=== PATIENT | female | born 1960 | race Caucasian/White ===

== ENCOUNTER 2024-05-27 22:17 | Emergency (ER) | payer MEDICAID ==
[~2024-05-27] VITALS: Ht 165.1 cm; Wt 77.0 kg
[2024-05-27 22:20] VITALS: O2SAT 98
[2024-05-27 23:11] LABS: CHLORIDE 108 mEq/L (98-107); POTASSIUM 4.3 mEq/L (3.5-5.1); SODIUM 143 mEq/L (136-145)
[2024-05-27 23:12] LABS: CALCIUM 9.8 mg/dL (8.7-10.4); CARBON DIOXIDE 30 mEq/L (21-32)
[2024-05-27 23:17] LABS: CREATININE 0.9 mg/dL (0.6-1.0); GLUCOSE 129 mg/dL (70-105); UREA NITROGEN BLOOD 13 mg/dL (9-23)
[2024-05-27 23:18] LABS: TROPONIN I HIGH SENSITIVITY < 4 ng/L (3.0-34)
[2024-05-27 23:19] LABS: ALANINE AMINOTRANSFERASE 21 IU/L (10-49); ALBUMIN 4.5 g/dL (3.2-4.8); ASPARTATE AMINOTRANSFERASE 27 IU/L (<34); BILIRUBIN DIRECT 0.2 mg/dL (<=3.0); BILIRUBIN TOTAL 0.9 mg/dL (0.1-1.0); PROTEIN TOTAL 7.8 g/dL (6.0-8.3)
[2024-05-27 23:23] LABS: BASOPHILS % 0.1 % (0.0-2.0); EOSINOPHILS % 2.7 % (0.0-5.0); HEMATOCRIT. 42.3 % (36.0-48.0); HEMOGLOBIN. 14.3 g/dL (12.0-16.0); LYMPHOCYTES % 10.1 % (20.0-50.0); MEAN CORPUSCULAR HEMOGLOBIN 32.6 pg (28.0-32.0); MEAN CORPUSCULAR HGB CONC 33.8 g/dL (31.0-37.0); MEAN CORPUSCULAR VOLUME 96.7 fL (81.0-99.0); MEAN PLATELET VOLUME 7.4 fl (7.4-10.4); MONOCYTES % 6.5 % (2.0-8.0); NEUTROPHILS % 80.6 % (40.0-76.0); PLATELET 198 x1000/uL (130-400); RED BLOOD CELL COUNT 4.38 mill/uL (4.2-5.4); RED CELL DISTRIBUTION WIDTH 13.4 % (11.6-14.6); WHITE BLOOD COUNT 15.3 x1000/uL (4.5-11.0)
[2024-05-27] MEDS ORDERED: HYDROCODONE/ACETAMINOPHEN 5/325MG TABLET PO ONE (23:30)
[2024-05-27 23:41] LABS: CLARITY URINE CLOUDY (CLEAR); COLOR URINE YELLOW (YELLOW); GLUCOSE URINE NEGATIVE (NEGATIVE); KETONES URINE NEGATIVE (NEGATIVE); LEUKOCYTE ESTERASE URINE 2+ (NEGATIVE); NITRITE URINE NEGATIVE (NEGATIVE); OCCULT BLOOD URINE NEGATIVE (NEGATIVE); PROTEIN URINE TRACE (NEGATIVE); SPECIFIC GRAVITY URINE 1.025 (1.005-1.030); UROBILINOGEN URINE 0.2 E.U./dL (0.2-1.0)
[2024-05-28 00:25] LABS: SQUAMOUS EPITHELIAL CELL URINE 1+ /lpf (RARE/1+)
[2024-05-28 00:29] LABS: RBC URINE 0-2 /hpf (0-2)
[2024-05-28 00:30] LABS: BACTERIA URINE 1+; YEAST URINE 1+
[2024-05-28] MEDS: HYDROCODONE/ACETAMINOPHEN 5/325MG TABLET PO NR (01:15)
[2024-05-28] MEDS ORDERED: IBUP-2029 MT (02:44)
[2024-05-28] MEDS ORDERED: CEPH500C2 MT (02:44)
[2024-05-28] MEDS ORDERED: FLUCONAZOLE 100MG TABLET PO ONE (02:45)
[2024-05-28] MEDS: FLUCONAZOLE 150MG TABLET PO NR (03:13)
[2024-05-28] MEDS: CEPHALEXIN 250MG CAPSULE PO ONE (03:13)
[2024-05-28 03:15] VITALS: BP 108/66; PULSE 78; RESP 20; TEMP 36.7; O2SAT 99
== END 2024-05-28 03:16 | disposition home or self-care (01) ==
LOC: ER 22:17
DX: N39.0 Urinary tract infection, site not specified (principal); B37.9 Candidiasis, unspecified
CPT/HCPCS: 36415; 71045; 76705; 80048; 80076; 81003; 84484; 85025; 93005; 99285